=== PATIENT | female | born 1980 | race African-American/Black ===

== ENCOUNTER 2017-07-30 01:02 | Emergency (ER) | payer OTHER ==
[~2017-07-30] VITALS: Ht 177.8 cm; Wt 77.2 kg
[~2017-07-30 01:02] MED LIST: NOHOMEMEDS
[2017-07-30] MEDS ORDERED: NAPROSYN500 MG PO (02:07)
[2017-07-30] MEDS ORDERED: ULTRAM50 MG PO (02:07)
[2017-07-30 02:35] VITALS: BP 134/85
== END 2017-07-30 02:45 | disposition home or self-care (01) ==
LOC: EXP 01:02 → EME 01:02 → EXP 02:45
DX: S93.602A Unspecified sprain of left foot, initial encounter (principal); X50.1XXA Overexertion from prolonged static or awkward postures, initial encounter; Y93.01 Activity, walking, marching and hiking
CPT/HCPCS: 73630; 99281; 99283